=== PATIENT | male | born 1970 | race Caucasian/White ===

== ENCOUNTER 2017-01-22 15:33 | Inpatient (IN) | payer OTHER ==
[~2017-01-22] VITALS: Ht 180.3 cm; Wt 107.1 kg
[~2017-01-22 15:33] MED LIST: CEFD300C37 PO; CHLO1CAP PO; DIVA250T4 PO; ERGO500017 PO; FOLI-17 PO; FURO-93 PO; GABA300C10 PO; LACT20SO13 PO; LOSA100T6 PO; MULT-658 PO; MULT1TAB60 PO; PRED20TA PO; PRED5TAB PO; SPIR25TA3 PO; THIA100T6 PO
[2017-01-22] MEDS ORDERED: ONDANSETRON 2MG/ML, 2ML IVP ONE (16:00)
[2017-01-22] MEDS ORDERED: SODIUM CHLORIDE FLUSH 10ML SYR IVF ONE (16:00)
[2017-01-22] MEDS ORDERED: SODIUM CHLORIDE 0.9% 1,000 ML IV ONE ×2 (16:00→17:33)
[2017-01-22] MEDS ORDERED: SODIUM CHLORIDE 0.9% 1,000ML IVBOLUS ONE ×2 (16:00→17:30)
[2017-01-22 16:34] LABS: ABG COLLECTION SITE RIGHT RADIAL; COLLATERAL CIRCULATION TESTING NORMAL
[2017-01-22 16:38] LABS: BLOOD UREA NITROGEN 21 mg/dL (7-18)
[2017-01-22 16:41] LABS: ASPARTATE AMINO TRANSFERASE 83 U/L (15-37)
[2017-01-22 16:49] LABS: HEMOGLOBIN 7.9 g/dL (13.7-18.0); WHITE BLOOD COUNT 10.4 x10^3/uL (3.4-10)
[2017-01-22 16:51] LABS: DIFF TOTAL CELLS COUNTED 100 CELL DIFF; IS PT STATUS REG ER OR PRE ER? YES
[2017-01-22 16:53] LABS: ANISOCYTOSIS 1+; VERIFY COUNTS? YES
[2017-01-22 16:54] LABS: LARGE PLATELETS 1+
[2017-01-22 17:09] LABS: ACETAMINOPHEN 18 mcg/mL (10-30)
[2017-01-22] MEDS ORDERED: PHARMACOKINETIC CONSULTATION MC ONE ×2 (17:30→21:30)
[2017-01-22] MEDS ORDERED: PIPERACILLIN/TAZO/PMX 4.5GM 100 ML IVPB ONE (17:30)
[2017-01-22] MEDS ORDERED: VANCOMYCIN PER PHARMACY MC ONE (17:30)
[2017-01-22] MEDS ORDERED: VANCOMYCIN 2,000 MG in SODIUM CHLORIDE 0.9% 500 ML IV ONE (18:00)
[2017-01-22] MEDS ORDERED: SODIUM CHLORIDE FLUSH 10ML SYR IVF PRN (18:00)
[2017-01-22] MEDS ORDERED: ONDANSETRON ODT 4 MG PO PRN (18:30)
[2017-01-22] MEDS ORDERED: GUAIFENESIN/DM 200-20MG, 10ML UDC PO PRN (18:30)
[2017-01-22] MEDS ORDERED: VANCOMYCIN PER PHARMACY MC PRN (18:30)
[2017-01-22] MEDS ORDERED: hydrALAzine 20 MG/ML, 1ML IVPush PRN (18:30)
[2017-01-22 21:00] VITALS: BP 117/59
[2017-01-22] MEDS: LACTULOSE 20 GM/30 ML UDC PO SCH (21:00)
[2017-01-22] MEDS ORDERED: PHARMACOKINETIC MONITORING MC PRN (21:30)
[2017-01-22] MEDS ORDERED: VANCOMYCIN 2,000 MG in SODIUM CHLORIDE 0.9% 250 ML IV SCH (21:30)
[2017-01-22] MEDS ORDERED: VANCOMYCIN 2,000 MG in SODIUM CHLORIDE 0.9% 500 ML IV SCH (21:30)
[2017-01-22] MEDS: SODIUM CHLORIDE 0.9% 1,000 ML IV SCH (23:00)
[2017-01-22] MEDS: ENOXAPARIN 40 MG/0.4 ML SQ SCH (23:00)
[2017-01-22] MEDS: PIPERACILLIN/TAZO/PMX 4.5GM 100 ML IV SCH (23:43)
[2017-01-23 02:00] VITALS: BP 117/64
[2017-01-23 05:21] LABS: HEMATOCRIT 24.2 % (39.2-51.8); HEMOGLOBIN 8.1 g/dL (13.7-18.0); WHITE BLOOD COUNT 10.4 x10^3/uL (3.4-10)
[2017-01-23 05:22] LABS: BLOOD UREA NITROGEN 19 mg/dL (7-18)
[2017-01-23] MEDS: PIPERACILLIN/TAZO/PMX 4.5GM 100 ML IV SCH ×4 (05:43→23:40)
[2017-01-23 05:54] LABS: DIFF TOTAL CELLS COUNTED 100 CELL DIFF
[2017-01-23 05:56] LABS: ANISOCYTOSIS 1+; VERIFY COUNTS? YES
[2017-01-23 05:57] LABS: POLYCHROMASIA 1+
[2017-01-23] MEDS: ALBUTEROL/IPRATROPIUM 2.5MG/0.5MG, 3 ML NPPB SCH ×3 (06:55→14:40)
[2017-01-23] MEDS ORDERED: ALBUTEROL/IPRATROPIUM 2.5MG/0.5MG, 3 ML ONE (06:58)
[2017-01-23] MEDS ORDERED: ALBUTEROL/IPRATROPIUM 2.5MG/0.5MG, 3 ML NPPB PRN (07:00)
[2017-01-23] MEDS: VANCOMYCIN 2,000 MG in SODIUM CHLORIDE 0.9% 500 ML IV SCH ×2 (07:15→19:08)
[2017-01-23] MEDS: SODIUM CHLORIDE 0.9% 1,000 ML IV SCH ×2 (08:00→17:01)
[2017-01-23] MEDS ORDERED: FUROSEMIDE 20 MG TABLET PO SCH (09:00)
[2017-01-23 09:01] VITALS: BP 130/75
[2017-01-23 09:30] LABS: ABG COLLECTION SITE RIGHT RADIAL
[2017-01-23 09:31] LABS: COLLATERAL CIRCULATION TESTING NORMAL
[2017-01-23] MEDS: MULTIVITAMIN 1 TABLET PO SCH (10:49)
[2017-01-23] MEDS: SPIRONOLACTONE 25 MG TABLET PO SCH (10:49)
[2017-01-23] MEDS: FOLIC ACID 1 MG TABLET PO SCH (10:49)
[2017-01-23] MEDS: LACTULOSE 20 GM/30 ML UDC PO SCH ×2 (10:49→23:39)
[2017-01-23] MEDS: ERGOCALCIFEROL 50,000 UNIT CAPSULE PO SCH (10:49)
[2017-01-23] MEDS: THIAMINE 100MG TABLET PO SCH (10:49)
[2017-01-23 15:02] VITALS: BP 117/63
[2017-01-23] MEDS ORDERED: IBUPROFEN 200 MG TABLET PO PRN (15:30)
[2017-01-23 19:39] VITALS: BP 145/69
[2017-01-23] MEDS ORDERED: methylPREDNISolone SOD SUCC 125 MG/2 ML IVPush ONE (21:00)
[2017-01-23] MEDS ORDERED: LORazepam 2 MG/ML, 1ML IVPush PRN (21:00)
[2017-01-23] MEDS: IPRATROPIUM 0.5 MG/2.5 ML INHA NPPB SCH (21:40)
[2017-01-23] MEDS: ENOXAPARIN 40 MG/0.4 ML SQ SCH (23:40)
[2017-01-23 23:41] VITALS: BP 122/59
[2017-01-24 00:23] VITALS: BP 116/55
[2017-01-24 00:35] LABS: ABG COLLECTION SITE LEFT RADIAL; COLLATERAL CIRCULATION TESTING NORMAL
[2017-01-24] MEDS ORDERED: BUMETANIDE 0.25 MG/ML, 4ML IV ONE (01:00)
[2017-01-24] MEDS ORDERED: SODIUM BICARB 8.4%, 50ML SYRINGE IVPush ONE (01:30)
[2017-01-24] MEDS: BUMETANIDE 0.25 MG/ML, 4ML IV SCH ×2 (01:52→13:22)
[2017-01-24 05:13] VITALS: BP 105/59
[2017-01-24 05:21] LABS: ABG COLLECTION SITE LEFT RADIAL; COLLATERAL CIRCULATION TESTING NORMAL
[2017-01-24 05:29] LABS: HEMOGLOBIN 7.4 g/dL (13.7-18.0); WHITE BLOOD COUNT 8.8 x10^3/uL (3.4-10)
[2017-01-24] MEDS: methylPREDNISolone SOD SUCC 40 MG/ML IV SCH ×2 (05:33→17:09)
[2017-01-24] MEDS: PIPERACILLIN/TAZO/PMX 4.5GM 100 ML IV SCH ×4 (05:33→23:32)
[2017-01-24 05:53] LABS: BLOOD UREA NITROGEN 17 mg/dL (7-18)
[2017-01-24] MEDS: VANCOMYCIN 2,000 MG in SODIUM CHLORIDE 0.9% 500 ML IV SCH ×2 (06:16→18:36)
[2017-01-24 06:27] LABS: DIFF TOTAL CELLS COUNTED 100 CELL DIFF
[2017-01-24 06:29] LABS: ANISOCYTOSIS 1+; HYPOCHROMIA 1+; OVALOCYTES 1+; POLYCHROMASIA 1+; VERIFY COUNTS? YES
[2017-01-24] MEDS: IPRATROPIUM 0.5 MG/2.5 ML INHA NPPB SCH ×4 (07:03→19:25)
[2017-01-24] MEDS: SPIRONOLACTONE 25 MG TABLET PO SCH (08:32)
[2017-01-24] MEDS: MULTIVITAMIN 1 TABLET PO SCH (08:32)
[2017-01-24] MEDS: THIAMINE 100MG TABLET PO SCH (08:32)
[2017-01-24] MEDS: FOLIC ACID 1 MG TABLET PO SCH (08:32)
[2017-01-24] MEDS: LACTULOSE 20 GM/30 ML UDC PO SCH ×2 (08:32→19:59)
[2017-01-24] MEDS: SODIUM CHLORIDE 0.9% 1,000 ML IV SCH ×2 (08:37→17:10)
[2017-01-24 11:12] VITALS: BP 129/63
[2017-01-24 12:25] LABS: 027-NAP1-BI Presumpt Negative (Negative); C. DIFF TOXIN A & B Negative
[2017-01-24] MEDS: GUAIFENESIN 200 MG TABLET PO SCH ×3 (13:19→20:00)
[2017-01-24 15:00] VITALS: BP 111/55
[2017-01-24] MEDS: ENOXAPARIN 40 MG/0.4 ML SQ SCH (19:59)
[2017-01-24 20:18] VITALS: BP 124/68
[2017-01-25] MEDS: methylPREDNISolone SOD SUCC 40 MG/ML IV SCH ×3 (01:04→16:43)
[2017-01-25] MEDS: BUMETANIDE 0.25 MG/ML, 4ML IV SCH ×2 (01:04→13:41)
[2017-01-25 01:10] VITALS: BP 116/64
[2017-01-25] MEDS: PIPERACILLIN/TAZO/PMX 4.5GM 100 ML IV SCH ×4 (05:03→23:27)
[2017-01-25 06:50] VITALS: BP 124/74
[2017-01-25] MEDS: IPRATROPIUM 0.5 MG/2.5 ML INHA NPPB SCH ×4 (07:53→19:30)
[2017-01-25] MEDS: SODIUM CHLORIDE 0.9% 1,000 ML IV SCH ×2 (08:00→16:00)
[2017-01-25] MEDS: LACTULOSE 20 GM/30 ML UDC PO SCH ×2 (08:29→20:28)
[2017-01-25] MEDS: FOLIC ACID 1 MG TABLET PO SCH (08:30)
[2017-01-25] MEDS: GUAIFENESIN 200 MG TABLET PO SCH ×3 (08:30→20:28)
[2017-01-25] MEDS: MULTIVITAMIN 1 TABLET PO SCH (08:30)
[2017-01-25] MEDS: SPIRONOLACTONE 25 MG TABLET PO SCH (08:30)
[2017-01-25] MEDS: THIAMINE 100MG TABLET PO SCH (08:30)
[2017-01-25] MEDS: LACTOBACILLUS CHEW TABLET PO SCH ×3 (10:50→20:28)
[2017-01-25] MEDS: RIFAXIMIN 550 MG TABLET PO SCH ×2 (10:50→20:28)
[2017-01-25 11:48] LABS: RAPID INFLUENZA A Negative (Negative); RAPID INFLUENZA B Negative (Negative)
[2017-01-25 14:40] VITALS: BP 122/65
[2017-01-25 19:45] VITALS: BP 138/75
[2017-01-25] MEDS: ENOXAPARIN 40 MG/0.4 ML SQ SCH (20:29)
[2017-01-26] MEDS: SODIUM CHLORIDE 0.9% 1,000 ML IV SCH ×3 (01:38→21:23)
[2017-01-26] MEDS: methylPREDNISolone SOD SUCC 40 MG/ML IV SCH ×3 (01:38→17:54)
[2017-01-26] MEDS: BUMETANIDE 0.25 MG/ML, 4ML IV SCH (01:46)
[2017-01-26 01:54] VITALS: BP 123/54
[2017-01-26 04:55] LABS: HEMATOCRIT 24.9 % (39.2-51.8); HEMOGLOBIN 8.1 g/dL (13.7-18.0); WHITE BLOOD COUNT 19.2 x10^3/uL (3.4-10)
[2017-01-26 05:19] LABS: ASPARTATE AMINO TRANSFERASE 87 U/L (15-37); BLOOD UREA NITROGEN 25 mg/dL (7-18)
[2017-01-26] MEDS: PIPERACILLIN/TAZO/PMX 4.5GM 100 ML IV SCH ×4 (05:25→23:36)
[2017-01-26 05:37] LABS: DIFF TOTAL CELLS COUNTED 100 CELL DIFF
[2017-01-26 05:40] LABS: ANISOCYTOSIS 1+; VERIFY COUNTS? YES
[2017-01-26 05:41] LABS: GIANT PLATELETS 1+; LARGE PLATELETS 1+; POLYCHROMASIA 1+
[2017-01-26 05:43] LABS: ECHINOCYTES 1+
[2017-01-26] MEDS: IPRATROPIUM 0.5 MG/2.5 ML INHA NPPB SCH ×4 (06:55→18:41)
[2017-01-26] MEDS ORDERED: MAGNESIUM SULFATE 6 GM in SODIUM CHLORIDE 0.9% 100 ML IV ONE (08:30)
[2017-01-26] MEDS ORDERED: POTASSIUM PHOSPHATE 44 MEQ in SODIUM CHLORIDE 0.9% 500 ML IV ONE (08:30)
[2017-01-26 08:37] VITALS: BP 138/66
[2017-01-26] MEDS ORDERED: VANCOMYCIN 2,000 MG in SODIUM CHLORIDE 0.9% 500 ML IV SCH (09:00)
[2017-01-26] MEDS: RIFAXIMIN 550 MG TABLET PO SCH ×2 (09:41→21:23)
[2017-01-26] MEDS: SPIRONOLACTONE 25 MG TABLET PO SCH (09:41)
[2017-01-26] MEDS: LACTULOSE 20 GM/30 ML UDC PO SCH ×2 (09:41→21:23)
[2017-01-26] MEDS: LACTOBACILLUS CHEW TABLET PO SCH ×3 (09:41→21:23)
[2017-01-26] MEDS: MULTIVITAMIN 1 TABLET PO SCH (09:41)
[2017-01-26] MEDS: FOLIC ACID 1 MG TABLET PO SCH (09:41)
[2017-01-26] MEDS: THIAMINE 100MG TABLET PO SCH (09:41)
[2017-01-26] MEDS: GUAIFENESIN 200 MG TABLET PO SCH ×3 (09:41→21:23)
[2017-01-26] MEDS: POTASSIUM CHLORIDE 20 MEQ TAB.ER.PRT PO SCH ×3 (10:52→15:39)
[2017-01-26 13:19] VITALS: BP 116/64
[2017-01-26] MEDS: FUROSEMIDE 40 MG/4 ML IV SCH (13:56)
[2017-01-26 20:27] VITALS: BP 118/68
[2017-01-26] MEDS: ENOXAPARIN 40 MG/0.4 ML SQ SCH (21:24)
[2017-01-27] MEDS: methylPREDNISolone SOD SUCC 40 MG/ML IV SCH ×3 (00:36→16:43)
[2017-01-27 01:58] VITALS: BP 127/68
[2017-01-27] MEDS: PIPERACILLIN/TAZO/PMX 4.5GM 100 ML IV SCH ×3 (05:37→16:43)
[2017-01-27] MEDS: FUROSEMIDE 40 MG/4 ML IV SCH ×2 (05:38→16:44)
[2017-01-27] MEDS: SODIUM CHLORIDE 0.9% 1,000 ML IV SCH ×3 (05:38→22:03)
[2017-01-27 06:00] LABS: BLOOD UREA NITROGEN 31 mg/dL (7-18)
[2017-01-27 06:04] LABS: ASPARTATE AMINO TRANSFERASE 90 U/L (15-37)
[2017-01-27 06:05] LABS: HEMATOCRIT 26.3 % (39.2-51.8); HEMOGLOBIN 8.6 g/dL (13.7-18.0); WHITE BLOOD COUNT 21.4 x10^3/uL (3.4-10)
[2017-01-27 06:37] LABS: DIFF TOTAL CELLS COUNTED 100 CELL DIFF
[2017-01-27 06:39] LABS: ANISOCYTOSIS 1+; POLYCHROMASIA 1+; VERIFY COUNTS? YES
[2017-01-27 06:40] LABS: GIANT PLATELETS 1+; LARGE PLATELETS 1+; OVALOCYTES 1+; POIKILOCYTOSIS 1+
[2017-01-27 07:32] VITALS: BP 134/77
[2017-01-27] MEDS: IPRATROPIUM 0.5 MG/2.5 ML INHA NPPB SCH ×4 (07:35→19:00)
[2017-01-27] MEDS: RIFAXIMIN 550 MG TABLET PO SCH ×2 (08:37→22:01)
[2017-01-27] MEDS: THIAMINE 100MG TABLET PO SCH (08:37)
[2017-01-27] MEDS: MULTIVITAMIN 1 TABLET PO SCH (08:37)
[2017-01-27] MEDS: FOLIC ACID 1 MG TABLET PO SCH (08:37)
[2017-01-27] MEDS: SPIRONOLACTONE 25 MG TABLET PO SCH (08:37)
[2017-01-27] MEDS: GUAIFENESIN 200 MG TABLET PO SCH ×3 (08:37→22:01)
[2017-01-27] MEDS: LACTULOSE 20 GM/30 ML UDC PO SCH ×2 (08:38→22:01)
[2017-01-27] MEDS: LACTOBACILLUS CHEW TABLET PO SCH ×3 (08:38→22:01)
[2017-01-27 15:11] VITALS: BP 157/95
[2017-01-27 19:32] VITALS: BP 132/76
[2017-01-27] MEDS: ENOXAPARIN 40 MG/0.4 ML SQ SCH (22:01)
[2017-01-27] MEDS ORDERED: VANCOMYCIN 1,500 MG in SODIUM CHLORIDE 0.9% 250 ML IV SCH (22:30)
[2017-01-28] MEDS: PIPERACILLIN/TAZO/PMX 4.5GM 100 ML IV SCH ×3 (00:24→12:29)
[2017-01-28] MEDS: methylPREDNISolone SOD SUCC 40 MG/ML IV SCH ×2 (00:30→10:00)
[2017-01-28 02:00] VITALS: BP 138/73
[2017-01-28] MEDS: FUROSEMIDE 40 MG/4 ML IV SCH (06:07)
[2017-01-28 06:47] LABS: BLOOD UREA NITROGEN 35 mg/dL (7-18)
[2017-01-28 06:52] LABS: ASPARTATE AMINO TRANSFERASE 79 U/L (15-37)
[2017-01-28 07:00] LABS: HEMATOCRIT 25.1 % (39.2-51.8); HEMOGLOBIN 8.2 g/dL (13.7-18.0); WHITE BLOOD COUNT 19.5 x10^3/uL (3.4-10)
[2017-01-28] MEDS: IPRATROPIUM 0.5 MG/2.5 ML INHA NPPB SCH ×4 (07:00→20:00)
[2017-01-28 07:02] LABS: DIFF TOTAL CELLS COUNTED 100 CELL DIFF
[2017-01-28 07:04] LABS: ANISOCYTOSIS 1+; VERIFY COUNTS? YES
[2017-01-28 07:05] LABS: OVALOCYTES 1+; POLYCHROMASIA 1+
[2017-01-28 07:06] LABS: GIANT PLATELETS 1+; LARGE PLATELETS 1+
[2017-01-28 09:24] VITALS: BP 122/73
[2017-01-28] MEDS: MULTIVITAMIN 1 TABLET PO SCH (10:00)
[2017-01-28] MEDS: LACTOBACILLUS CHEW TABLET PO SCH ×3 (10:00→20:24)
[2017-01-28] MEDS: SPIRONOLACTONE 25 MG TABLET PO SCH (10:00)
[2017-01-28] MEDS: THIAMINE 100MG TABLET PO SCH (10:00)
[2017-01-28] MEDS: FOLIC ACID 1 MG TABLET PO SCH (10:00)
[2017-01-28] MEDS: GUAIFENESIN 200 MG TABLET PO SCH ×3 (10:01→20:24)
[2017-01-28] MEDS: RIFAXIMIN 550 MG TABLET PO SCH ×2 (10:01→20:23)
[2017-01-28] MEDS: LACTULOSE 20 GM/30 ML UDC PO SCH ×2 (10:01→20:23)
[2017-01-28] MEDS: SODIUM CHLORIDE 0.9% 1,000 ML IV SCH (10:09)
[2017-01-28 15:16] VITALS: BP 146/83
[2017-01-28] MEDS: DOXYCYCLINE 100 MG in DEXTROSE 5% 250 ML IV SCH (16:05)
[2017-01-28] MEDS: CEFTRIAXONE PMX 1GM/50ML 50 ML IV SCH (17:48)
[2017-01-28 20:08] VITALS: BP 136/78
[2017-01-28] MEDS: ENOXAPARIN 40 MG/0.4 ML SQ SCH (20:24)
[2017-01-29 02:39] VITALS: BP 156/79
[2017-01-29] MEDS: DOXYCYCLINE 100 MG in DEXTROSE 5% 250 ML IV SCH ×2 (04:42→17:00)
[2017-01-29 07:26] LABS: BLOOD UREA NITROGEN 39 mg/dL (7-18)
[2017-01-29] MEDS: IPRATROPIUM 0.5 MG/2.5 ML INHA NPPB SCH (07:37)
[2017-01-29 07:39] LABS: HEMATOCRIT 24.2 % (39.2-51.8); HEMOGLOBIN 7.9 g/dL (13.7-18.0); WHITE BLOOD COUNT 20.1 x10^3/uL (3.4-10)
[2017-01-29 07:40] LABS: DIFF TOTAL CELLS COUNTED 100 CELL DIFF
[2017-01-29 07:42] LABS: VERIFY COUNTS? YES
[2017-01-29 07:43] LABS: ANISOCYTOSIS 1+; OVALOCYTES 1+; POLYCHROMASIA 1+
[2017-01-29 07:44] LABS: GIANT PLATELETS 1+; LARGE PLATELETS 1+
[2017-01-29 08:49] VITALS: BP 133/77
[2017-01-29] MEDS: GUAIFENESIN 200 MG TABLET PO SCH ×3 (09:02→21:15)
[2017-01-29] MEDS: LACTOBACILLUS CHEW TABLET PO SCH ×3 (09:02→21:15)
[2017-01-29] MEDS: MULTIVITAMIN 1 TABLET PO SCH (09:02)
[2017-01-29] MEDS: FUROSEMIDE 10 MG/ML ORAL SOL PO SCH (09:03)
[2017-01-29] MEDS: RIFAXIMIN 550 MG TABLET PO SCH ×2 (09:03→21:15)
[2017-01-29] MEDS: THIAMINE 100MG TABLET PO SCH (09:03)
[2017-01-29] MEDS: FOLIC ACID 1 MG TABLET PO SCH (09:03)
[2017-01-29] MEDS: LACTULOSE 20 GM/30 ML UDC PO SCH ×2 (09:03→21:15)
[2017-01-29] MEDS: SPIRONOLACTONE 25 MG TABLET PO SCH (09:04)
[2017-01-29 14:17] VITALS: BP 143/52
[2017-01-29] MEDS: CEFTRIAXONE PMX 1GM/50ML 50 ML IV SCH (16:32)
[2017-01-29 20:00] VITALS: BP 156/74
[2017-01-29] MEDS ORDERED: IBUPROFEN 200 MG TABLET PO PRN (20:00)
[2017-01-29] MEDS ORDERED: hydrALAzine 20 MG/ML, 1ML IVPush PRN (20:00)
[2017-01-29] MEDS: ENOXAPARIN 40 MG/0.4 ML SQ SCH (21:15)
[2017-01-30 02:29] VITALS: BP 145/69
[2017-01-30] MEDS: DOXYCYCLINE 100 MG in DEXTROSE 5% 250 ML IV SCH ×2 (05:33→16:37)
[2017-01-30 08:33] VITALS: BP 135/75
[2017-01-30] MEDS: GUAIFENESIN 200 MG TABLET PO SCH ×3 (09:27→20:47)
[2017-01-30] MEDS: RIFAXIMIN 550 MG TABLET PO SCH ×2 (09:27→20:47)
[2017-01-30] MEDS: LACTOBACILLUS CHEW TABLET PO SCH ×3 (09:27→20:47)
[2017-01-30] MEDS: ERGOCALCIFEROL 50,000 UNIT CAPSULE PO SCH (09:27)
[2017-01-30] MEDS: MULTIVITAMIN 1 TABLET PO SCH (09:27)
[2017-01-30] MEDS: LACTULOSE 20 GM/30 ML UDC PO SCH ×2 (09:27→20:47)
[2017-01-30] MEDS: SPIRONOLACTONE 25 MG TABLET PO SCH (09:27)
[2017-01-30] MEDS: FUROSEMIDE 10 MG/ML ORAL SOL PO SCH (09:27)
[2017-01-30] MEDS: THIAMINE 100MG TABLET PO SCH (09:27)
[2017-01-30] MEDS: FOLIC ACID 1 MG TABLET PO SCH (09:27)
[2017-01-30 15:47] VITALS: BP 147/79
[2017-01-30] MEDS: CEFTRIAXONE PMX 1GM/50ML 50 ML IV SCH (18:37)
[2017-01-30 19:30] VITALS: BP 174/98
[2017-01-30] MEDS: ENOXAPARIN 40 MG/0.4 ML SQ SCH (20:48)
[2017-01-30 20:52] VITALS: BP 129/70
[2017-01-31 02:04] VITALS: BP 136/72
[2017-01-31] MEDS: DOXYCYCLINE 100 MG in DEXTROSE 5% 250 ML IV SCH ×2 (04:46→17:18)
[2017-01-31 04:53] LABS: HEMATOCRIT 24.9 % (39.2-51.8); HEMOGLOBIN 8.1 g/dL (13.7-18.0); WHITE BLOOD COUNT 18.3 x10^3/uL (3.4-10)
[2017-01-31 04:54] LABS: BLOOD UREA NITROGEN 34 mg/dL (7-18)
[2017-01-31 05:35] LABS: DIFF TOTAL CELLS COUNTED 100 CELL DIFF
[2017-01-31 05:37] LABS: ANISOCYTOSIS 1+; POLYCHROMASIA 1+; VERIFY COUNTS? YES
[2017-01-31 05:38] LABS: LARGE PLATELETS 1+; POIKILOCYTOSIS 1+
[2017-01-31 07:52] VITALS: BP 147/87
[2017-01-31] MEDS: RIFAXIMIN 550 MG TABLET PO SCH ×2 (09:14→21:54)
[2017-01-31] MEDS: LACTULOSE 20 GM/30 ML UDC PO SCH ×2 (09:14→21:53)
[2017-01-31] MEDS: MULTIVITAMIN 1 TABLET PO SCH (09:15)
[2017-01-31] MEDS: SPIRONOLACTONE 25 MG TABLET PO SCH (09:15)
[2017-01-31] MEDS: THIAMINE 100MG TABLET PO SCH (09:15)
[2017-01-31] MEDS: GUAIFENESIN 200 MG TABLET PO SCH ×3 (09:15→21:54)
[2017-01-31] MEDS: FUROSEMIDE 10 MG/ML ORAL SOL PO SCH (09:15)
[2017-01-31] MEDS: LACTOBACILLUS CHEW TABLET PO SCH ×3 (09:15→21:54)
[2017-01-31] MEDS: FOLIC ACID 1 MG TABLET PO SCH (09:16)
[2017-01-31 14:36] VITALS: BP 135/71
[2017-01-31] MEDS: CEFTRIAXONE PMX 1GM/50ML 50 ML IV SCH (18:27)
[2017-01-31 19:28] VITALS: BP 146/73
[2017-01-31] MEDS: ENOXAPARIN 40 MG/0.4 ML SQ SCH (21:54)
[2017-02-01 02:15] VITALS: BP 140/72
[2017-02-01] MEDS: DOXYCYCLINE 100 MG in DEXTROSE 5% 250 ML IV SCH (05:32)
[2017-02-01 06:12] LABS: BLOOD UREA NITROGEN 29 mg/dL (7-18)
[2017-02-01 06:13] LABS: HEMATOCRIT 24.5 % (39.2-51.8); HEMOGLOBIN 8.2 g/dL (13.7-18.0); WHITE BLOOD COUNT 19.1 x10^3/uL (3.4-10)
[2017-02-01 07:05] LABS: DIFF TOTAL CELLS COUNTED 100 CELL DIFF
[2017-02-01 07:06] LABS: VERIFY COUNTS? YES
[2017-02-01 07:07] LABS: ANISOCYTOSIS 1+; POLYCHROMASIA 1+
[2017-02-01 07:08] LABS: LARGE PLATELETS 1+
[2017-02-01 07:09] LABS: GIANT PLATELETS 1+
[2017-02-01 07:38] VITALS: BP 152/74
[2017-02-01] MEDS: LACTULOSE 20 GM/30 ML UDC PO SCH (09:53)
[2017-02-01] MEDS: MULTIVITAMIN 1 TABLET PO SCH (09:54)
[2017-02-01] MEDS: SPIRONOLACTONE 25 MG TABLET PO SCH (09:54)
[2017-02-01] MEDS: THIAMINE 100MG TABLET PO SCH (09:54)
[2017-02-01] MEDS: FUROSEMIDE 10 MG/ML ORAL SOL PO SCH (09:54)
[2017-02-01] MEDS: LACTOBACILLUS CHEW TABLET PO SCH ×2 (09:54→17:22)
[2017-02-01] MEDS: FOLIC ACID 1 MG TABLET PO SCH (09:54)
[2017-02-01] MEDS: RIFAXIMIN 550 MG TABLET PO SCH (09:55)
[2017-02-01] MEDS: GUAIFENESIN 200 MG TABLET PO SCH ×2 (09:55→17:22)
[2017-02-01] MEDS ORDERED: PRED20TA PO (16:48)
== END 2017-02-01 18:24 | disposition home or self-care (01) | DRG 871 ==
LOC: ED 16:43 → EDIP 17:33 → 4WST 20:49
PROVIDERS: ADMIT Hospitalist; ATTEND Hospitalist
DX: A41.9 Sepsis, unspecified organism (principal); J15.9 Unspecified bacterial pneumonia; J96.01 Acute respiratory failure with hypoxia; R65.21 Severe sepsis with septic shock; I11.0 Hypertensive heart disease with heart failure; D69.59 Other secondary thrombocytopenia; I50.9 Heart failure, unspecified; D89.9 Disorder involving the immune mechanism, unspecified; J98.11 Atelectasis; K70.31 Alcoholic cirrhosis of liver with ascites; K72.90 Hepatic failure, unspecified without coma; R56.9 Unspecified convulsions; E87.6 Hypokalemia; Z81.1 Family history of alcohol abuse and dependence
CPT/HCPCS: 36415; 36600; 71010; 71020; 71275; 76705; 80048; 80053; 80202; 80307; 80329; 81001; 82010; 82140; 82803; 83605; 83690; 83735; 83880; 84100; 84145; 84484; 85025; 85610; 85730; 87040; 87070; 87086; 87205; 87324; 87400; 87493; 89055; 93005; 93306; 94640; 96361; 96365; J0696; J1650; J1940; J2543; J3370; J3475; J7060; J7620; J7644; Q0162; G0479; G0480; J2060; J2920; J2930; J7030; J7040; J7050; J7512